=== PATIENT | female | born 1960 | race Caucasian/White ===

== ENCOUNTER 2018-09-15 17:13 | Emergency (ER) | payer BC ==
[2018-09-15 17:50] VITALS: TEMP 98.1
[2018-09-15 18:13] LABS: BASOPHILS % (AUTO) 0 % (0-3); EOSINOPHILS % (AUTO) 1 % (0-9); HEMATOCRIT 39 % (35-47); LYMPHOCYTES % (AUTO) 19.6 % (10-50); MEAN CORPUSCULAR HEMOGLOBIN 27.1 pg (27.0-32.0); MEAN CORPUSCULAR HGB CONC 33.2 gm/dl (32.0-36.0); MEAN CORPUSCULAR VOLUME 82 fL (81-99); MONOCYTES % (AUTO) 4.9 % (0-12); NEUTROPHILS % (AUTO) 74.5 % (37-80)
[2018-09-15 18:22] VITALS: RESP 18
[2018-09-15 18:25] LABS: CALCIUM 8.8 mg/dl (8.5-10.1); CARBON DIOXIDE 25.2 mEq/L (21-32); CREATININE 0.95 mg/dl (0.60-1.00); POTASSIUM 3.9 mMol/L (3.5-5.1)
[2018-09-15 19:08] VITALS: BP 119/74; PULSE 83; O2SAT 96
== END 2018-09-15 19:38 | disposition left against medical advice (07) ==
LOC: ED 17:13
DX: R49.0 Dysphonia (principal); R29.818 Other symptoms and signs involving the nervous system; E11.9 Type 2 diabetes mellitus without complications; Z53.21 Procedure and treatment not carried out due to patient leaving prior to being seen by health care provider
CPT/HCPCS: 36415; 70450; 80048; 85025; 99283